=== PATIENT | female | born 1930 | race Caucasian/White ===

== ENCOUNTER 2017-12-11 13:30 | Observation (INO) | payer OTHER ==
[2017-12-11] MEDS ORDERED: NS 500 ML IV ONE (14:04)
--- NOTE | 2017-12-11 14:04 | CPEKG ---
Heart Rate: 141 RR Interval: 426 QRSD Interval: 74 QT Interval: 268 QTC Interval: 411 QRS [place]: -16 T Wave [place]: 226 EKG Severity - ABNORMAL ECG - EKG Impression: ATRIAL FIBRILLATION EKG Impression: PROBABLE LVH WITH SECONDARY REPOL ABNRM Electronically Signed By: Alfonzo Shoemaker 11-Dec-2017 20:47:20
[2017-12-11 14:29] LABS: PLATELET COUNT 179 10^3/uL (150-400)
[2017-12-11 14:37] LABS: INR 1.15 (0.83-1.16); PROTIME(PATIENT) 14.9 SEC (12.0-15.0)
[2017-12-11] MEDS ORDERED: DILTIAZEM 125 MG in D5W 125 ML IV ONE (14:38)
[2017-12-11 14:41] LABS: CREATINE KINASE 31 IU/L (0-156)
--- NOTE | 2017-12-11 14:46 | EDPHY ---
H & P Time Seen by Provider: 12/11/17 14:03 HPI/ROS: HPI From surgery Center. Atrial fibrillation. 87-year-old female from the surgery center where she was getting cataract surgery on her left eye by Dr. Cortez gonzalez of the ophthalmology service. She has a history of atrial fibrillation and is on Eliquis. Her atrial fibrillation has been well rate controlled according to her daughter who accompanies her. She came out of anesthesia with a heart rate in the 140s. No associated chest pain or shortness of breath. She was sent to the emergency department for evaluation. She currently denies any pain to her left eye. ROS: Constitutional: No fever, no chills. No weakness. Eyes: No discharge. As above. ENT: No sore throat. No nasal congestion or rhinorrhea. Respiratory: No cough. No shortness of breath. Cardiac: No chest pain, as above. Gastrointestinal: No abdominal pain, no vomiting, no diarrhea. Genitourinary: No hematuria. No dysuria or increased frequency with urination. Musculoskeletal: No back pain. No neck pain. No myalgias or arthralgias. Skin: No rashes. Neurological: No headache. No focal weakness or altered sensation. Past medical history: History of cataracts. Pulmonary disease, atrial fibrillation on Eliquis. Social history: Here with daughter and family. Nonsmoker. Physical Exam: General Appearance: Alert, no distress. This patient is responding to questions appropriately and in full sentences. This patient appears well- hydrated and well-nourished. Eyes: Right eye pupil round and reactive to light. No lid injection or edema. Left eye covered in a protective patch. Respiratory: There are no retractions, lungs are clear to auscultation with good air movement bilaterally. Cardiovascular: Irregular, irregular tachycardia. No murmur appreciated. Gastrointestinal: Abdomen is soft and nontender, no masses, bowel sounds normal. No focal tenderness at McBurney's point. No Sandoval sign. Neurological: Motor sensory function is grossly intact. Cranial nerves are normal. Skin: Warm and dry, no rashes. Musculoskeletal: Neck is supple and nontender. Extremities are symmetrical. All joints range without pain or impingement. Psychiatric: No agitation. No depression. Database: EKG: EKG time is 2:02 p.m.; EKG shows a narrow complex atrial fibrillation with ventricular rate average of 141. No ST, T-wave changes indicative of ischemic or injury pattern. Interpreted by me. Repeat EKG time 3:47 p.m.; shows sinus versus ectopic atrial rhythm which is regular, rate of 66. Poor R-wave progression in the anterior precordial leads. Interpreted by me. Imaging: Chest x-ray AP portable; the cardiac mediastinal silhouette is unremarkable. Bilateral interstitial pneumonitis. Chronicity indeterminate. No evidence of pneumothorax. No other acute cardiopulmonary disease process noted. Interpreted by me. Procedures: Emergency department course: IV placed. She was placed on a groundwater monitoring technician. Vital signs reviewed. She was started on IV normal saline with 500 cc to be given over an hour. Secondary to her history of atrial fibrillation she will be rate controlled with plan for admission, echocardiography and consultation by the cardiology service for further management. She will be started on a diltiazem loading drip at 2.5 milligrams/minute initially for rate control. This plan was discussed with the family. All of their questions were answered. I spoke with her tool room gear machine operator, Dr. Rodriguez. He is aware she is here and what we are treating her for. He stated that he would stop by and see her this evening on the floor. 3:20 p.m., the patient is started her rate control. I discussed her case with on-call hospitalist Dr. Francois. Patient accepted for admission to the hospitalist service, telemetry. 3:45 p.m., patient has converted to a sinus rhythm. EKG to be repeated. She remains asymptomatic. 5:20 p.m., there was discussion on whether not to send the patient home in light of her conversion to a sinus rhythm. She and her daughter want her to remain in the hospital overnight. She was admitted to telemetry as previously planned in stable and improved condition. Differential Diagnosis: The differential diagnosis on this patient includes but is not limited to atrial fibrillation with rapid ventricular response. Acute coronary syndrome, hyperthyroid state, pulmonary embolism, toxic metabolic problem unlikely. This represents a partial list of diagnoses considered. These considerations are based on history, physical exam, past history, reassessment and diagnostic testing. Smoking Status: Never smoked Constitutional: Initial Vital Signs Temperature (C) 36.0 C 12/11/17 13:46 Blood Pressure 129/80 H 12/11/17 13:46 O2 Delivery Mode Room Air Allergies/Adverse Reactions: cat dander Allergy (Verified 12/11/17 13:52) codeine Allergy (Verified 12/11/17 13:52) Home Medications: Medication Instructions Recorded Apixaban [Eliquis] 2.5 mg PO BID 12/11/17 Hydrochlorothiazide [HCTZ (*)] 25 mg PO DAILY 12/11/17 Ketorolac 0.5% [Acular 0.5% Opht 1 drops LEFTEYE QID 12/11/17 Drops (*)] Levothyroxine [Synthroid 75 mcg 75 mcg PO DAILY06 12/11/17 (*)] Pantoprazole Sodium [Protonix] 20 mg PO HS 12/11/17 Polymyxin B Sulfate/Tmp [Polytrim 1 drops LEFTEYE QID 12/11/17 Opht Drops (*)] prednisoLONE ACET 1% [Pred Forte 1 drops LEFTEYE QID 12/11/17 1% (*)] Medical Decision Making - Diagnostics Imaging Results: Imaging Impressions Chest X-Ray 12/11/17 14:04 Impression: Bilateral interstitial pneumonitis (chronicity-indeterminate). Please see the above discussion. Comparison with prior studies would be helpful to assess for more specific interval change, and it may be worthwhile to consider follow up chest radiography in 4-6 weeks to reestablish a baseline. - Data Points Laboratory Results: Laboratory Results 12/11/17 14:16 12/11/17 14:16 12/11/17 12/11/17 12/11/17 14:16 14:16 14:16 WBC 6.40 10^3/uL 10^3/uL (3.80-9.50) RBC 5.20 10^6/uL 10^6/uL (4.18-5.33) Hgb 15.0 g/dL g/dL (12.6-16.3) Hct 44.7 % % (38.0-47.0) MCV 86.0 fL fL (81.5-99.8) MCH 28.8 pg pg (27.9-34.1) MCHC 33.6 g/dL g/dL (32.4-36.7) RDW 14.5 % % (11.5-15.2) Plt Count 179 10^3/uL 10^3/uL (150-400) MPV 9.6 fL fL (8.7-11.7) Neut % (Auto) 69.0 % % (39.3-74.2) Lymph % (Auto) 19.5 % % (15.0-45.0) Morrow % (Auto) 9.1 % % (4.5-13.0) Eos % (Auto) 1.6 % % (0.6-7.6) Baso % (Auto) 0.5 % % (0.3-1.7) Nucleat RBC Rel Count 0.0 % % (0.0-0.2) Absolute Neuts (auto) 4.42 10^3/uL 10^3/uL (1.70-6.50) Absolute Lymphs (auto) 1.25 10^3/uL 10^3/uL (1.00-3.00) Absolute Monos (auto) 0.58 10^3/uL 10^3/uL (0.30-0.80) Absolute Eos (auto) 0.10 10^3/uL 10^3/uL (0.03-0.40) Absolute Basos (auto) 0.03 10^3/uL 10^3/uL (0.02-0.10) Absolute Nucleated RBC 0.00 10^3/uL 10^3/uL (0-0.01) Immature Gran % 0.3 % % (0.0-1.1) Immature Gran # 0.02 10^3/uL 10^3/uL (0.00-0.10) PT 14.9 SEC SEC (12.0-15.0) INR 1.15 (0.83-1.16) APTT 34.9 SEC SEC (23.0-38.0) Sodium 137 mEq/L mEq/L (135-145) Potassium 4.3 mEq/L mEq/L (3.5-5.2) Chloride 101 mEq/L mEq/L (97-110) Carbon Dioxide 30 mEq/l mEq/l (22-31) Anion Gap 6 mEq/L L mEq/L (8-16) BUN 17 mg/dL mg/dL (7-23) Creatinine 0.6 mg/dL mg/dL (0.6-1.0) Estimated GFR > 60 Glucose 93 mg/dL mg/dL (70-100) Calcium 9.6 mg/dL mg/dL (8.5-10.4) Creatine Kinase 31 IU/L IU/L (0-156) CK-MB (CK-2) Fraction 0.99 ng/mL ng/mL (0.00-3.19) Troponin I < 0.012 ng/mL ng/mL (0.000-0.034) NT-Pro-B Natriuret Pep 668 pg/mL H pg/mL (0-450) Medications Given: Discontinued Medications Sodium Chloride (Ns) 500 mls @ 1,000 mls/hr IV EDNOW ONE PRN Reason: Protocol Stop: 12/11/17 14:33 Last Admin: 12/11/17 14:13 Dose: 500 mls Diltiazem HCl 125 mg/ Dextrose 125 mls @ 0 mls/hr IV EDNOW ONE; As Directed PRN Reason: Protocol Stop: 12/11/17 14:39 Last Admin: 12/11/17 15:09 Dose: 125 mls Departure - Departure Disposition: [facility] Acute Clinical Impression: Atrial fibrillation with RVR
[2017-12-11] MEDS ORDERED: ONDANSETRON 4 MG/2 ML VIAL IVP PRN (15:07)
[2017-12-11] MEDS ORDERED: ACETAMINOPHEN 325 MG TAB PO PRN (15:07)
[2017-12-11] MEDS ORDERED: ONDANSETRON DISINTEGRATING 4 MG TAB PO PRN (15:07)
--- NOTE | 2017-12-11 15:49 | CPEKG ---
Heart Rate: 66 RR Interval: 909 P-R Interval: 128 QRSD Interval: 82 QT Interval: 408 QTC Interval: 428 P [place]: -73 QRS [place]: -32 T Wave [place]: 58 EKG Severity - ABNORMAL ECG - EKG Impression: SINUS OR ECTOPIC ATRIAL RHYTHM EKG Impression: MULTIFORM VENTRICULAR PREMATURE COMPLEXES EKG Impression: MULT INTERPOLATED VENT PREMATURE COMPLEXES EKG Impression: LEFT AXIS DEVIATION EKG Impression: BORDERLINE R WAVE PROGRESSION, ANTERIOR LEADS Electronically Signed By: Alfonzo Shoemaker 11-Dec-2017 20:47:20
--- NOTE | 2017-12-11 16:03 | GHP ---
[f rep st] HISTORY AND PHYSICAL DATE OF ADMISSION: 12/11/2017 HISTORY OF PRESENT ILLNESS: A pleasant 87-year-old female with history of atrial fibrillation, on Eliquis, who is brought to the ER from [facility] with rapid atrial fibrillation. She underwent left cataract surgery today and heart rates were found to be in the 150s. She felt very fatigued. Denies any chest pain or shortness of breath. No nausea, vomiting, or diarrhea. She will occasionally feel palpitations, but this resolves quickly at home. No fevers, chills, or sweats. Lives in independent living in [place]. Uses a walker. She is not on CCB or BB for rate-control. REVIEW OF SYSTEMS: I completed a 10-point review of systems, negative except as noted in HPI. PAST MEDICAL HISTORY: 1. Atrial fibrillation. 2. Negative Lexiscan 11/17/2016. 3. Echocardiogram 10/2016: No wall motion abnormalities. EF of 60%, mild AR/ MR/TR/ME. 4. Hypothyroidism. PAST SURGICAL HISTORY: 1. Cataract. 2. Two shoulders. 3. IRENA. 4. Hysterectomy. 5. Teeth implant. 6. Gallbladder. 7. Breast reduction. 8. Breast implant. 9. Back surgery. FAMILY HISTORY: Noncontributory. ALLERGIES: Cat dander, codeine. HOME MEDICATION: PPI, levothyroxine, hydrochlorothiazide, Eliquis. PHYSICAL EXAM: VITAL SIGNS: Temperature 36.0, blood pressure 129/80, heart rate initially 140s, now 85-106, respirations 18, 97% on room air. GENERAL: Elderly female, thin, no acute distress. HEENT: A patch over left eye. Oropharynx clear. CV: Irregularly irregular, tachy. No lower extremity edema. LUNGS: Clear. ABDOMEN: Soft, nontender, nondistended. : No Cunningham. MUSCULOSKELETAL: Moving all 4 extremities. NEUROLOGIC: Cranial nerves 2 through 12 intact. PSYCH: Alert and oriented x3. Very pleasant. LABORATORY DATA: WBC 6, hemoglobin 15, hematocrit 44, platelets 179. Coags within normal. Sodium 137, potassium 4.3, chloride 101, carbon dioxide 30, creatinine 0.6, glucose 93, CK 31. BNP is 668. Troponin is less than 0.012. ASSESSMENT/PLAN: 1. Atrial fibrillation with RVR: triggered by surgery. Asymptomatic. Got low- dose diltiazem in the emergency room. Have to be careful with soft blood pressure. Negative Lexiscan and mild valvular heart disease on echo, October 2016. Per cardiology clinic notes, was dosed Metoprol 12.5 mg for a short enrique- operative course of 2 weeks. Can consider this if not rate-controlled. Holding Eliquis with surgery. 2. Hypertension. Hold hydrochlorothiazide. 3. Levothyroxine. Resume Synthroid. 4. Diet: Regular. 5. Deep vein thrombosis prophylaxis: Sequential compression devices. DISPOSITION: Patient warrants observation admission in the PCU for diltiazem drip and cardiac consultation, possible cardioversion. /[id number]/MODL MTDD
[2017-12-11] MEDS: KETOROLAC 0.5% 5 ML OPHT.BTL LEFTEYE SCH (20:57)
[2017-12-11] MEDS: POLYMYXIN B SULFATE/TMP 10 ML OPHT.BTL LEFTEYE SCH (20:58)
[2017-12-11] MEDS ORDERED: GATIFLOXACIN 0.5% 2.5 ML OPHT DROPS LEFTEYE SCH (21:00)
[2017-12-11] MEDS ORDERED: PANTOPRAZOLE SODIUM 40 MG TAB PO SCH (21:00)
[2017-12-11] MEDS: prednisoLONE ACET 1% 5 ML OPHT.BTL LEFTEYE SCH (21:01)
[2017-12-12] MEDS: KETOROLAC 0.5% 5 ML OPHT.BTL LEFTEYE SCH ×3 (05:50→17:55)
[2017-12-12] MEDS: prednisoLONE ACET 1% 5 ML OPHT.BTL LEFTEYE SCH ×3 (05:51→17:55)
[2017-12-12] MEDS: POLYMYXIN B SULFATE/TMP 10 ML OPHT.BTL LEFTEYE SCH ×3 (05:51→17:56)
[2017-12-12] MEDS ORDERED: LEVOTHYROXINE 75 MCG TAB PO SCH (06:00)
[2017-12-12 11:47] VITALS: BP 135/50
[2017-12-12] MEDS ORDERED: APIXABAN 2.5 MG TAB PO SCH (13:15)
--- NOTE | 2017-12-12 14:16 | PDIAF ---
- Diagnosis Diagnosis: A fib Code Status: Full Code - Medication Management Discharge Medications: Medications to Continue on Transfer Apixaban [Eliquis] 2.5 mg PO BID 12/11/17 [Last Taken 12/10/17 21:00] Ketorolac 0.5% [Acular 0.5% Opht Drops (*)] 1 drops LEFTEYE QID 12/11/17 [Last Taken 12/11/17 06:00] Levothyroxine [Synthroid 75 mcg (*)] 75 mcg PO DAILY06 12/11/17 [Last Taken 08/17] Pantoprazole Sodium [Protonix] 20 mg PO HS 12/11/17 [Last Taken 12/10/17] Polymyxin B Sulfate/Tmp [Polytrim Opht Drops (*)] 1 drops LEFTEYE QID 12/11/17 [ Last Taken 12/11/17 08:00] prednisoLONE ACET 1% [Pred Forte 1% (*)] 1 drops LEFTEYE QID 12/11/17 [Last Taken Unknown] Diltiazem HCl [Diltiazem 24Hr Cd] 120 mg PO DAILY #30 cap.er.24h 12/12/17 [Last Taken Unknown] Discharge Medications: Refer to the Discharge Home Medication list for PRN reason. - Orders Services needed: Home Care, Registered Nurse, Physical Therapy Home Care Face to Face: I certify that this patient was under my care and that I had the required [id number] encounter meeting the encounter requirements on the discharge day. My findings support the fact that the patient is homebound as defined in Home Care Face to Face Continued: CMS Chapter 7 Medicare Benefits Manual 30.1.1 , The condition of the patient is such that there exists a normal inability to leave home and consequently, leaving home would require a considerable and taxing effort. Diet Recommendation: no restrictions on diet Additional Instructions: Stop the HCTZ. Instead, start new prescription for Diltiazem 120 mg daily. This should hopefully prevent recurrent A fib. Continue Eliquis and all other medications. Follow up with your PCP in 2-3 days to recheck your blood pressure. - Follow Up Care Current Providers and Referrals: NONE *PRIMARY CARE P,. [Primary Care Provider] - As per Instructions
--- NOTE | 2017-12-12 15:47 | PDIAF ---
- Diagnosis Diagnosis: A fib Code Status: Full Code - Medication Management Discharge Medications: Medications to Continue on Transfer Apixaban [Eliquis] 2.5 mg PO BID 12/11/17 [Last Taken 12/10/17 21:00] Ketorolac 0.5% [Acular 0.5% Opht Drops (*)] 1 drops LEFTEYE QID 12/11/17 [Last Taken 12/11/17 06:00] Levothyroxine [Synthroid 75 mcg (*)] 75 mcg PO DAILY06 12/11/17 [Last Taken 08/17] Pantoprazole Sodium [Protonix] 20 mg PO HS 12/11/17 [Last Taken 12/10/17] Polymyxin B Sulfate/Tmp [Polytrim Opht Drops (*)] 1 drops LEFTEYE QID 12/11/17 [ Last Taken 12/11/17 08:00] prednisoLONE ACET 1% [Pred Forte 1% (*)] 1 drops LEFTEYE QID 12/11/17 [Last Taken Unknown] Diltiazem HCl [Diltiazem 24Hr Cd] 120 mg PO DAILY #30 cap.er.24h 12/12/17 [Last Taken Unknown] Discharge Medications: Refer to the Discharge Home Medication list for PRN reason. - Orders Services needed: Home Care, Registered Nurse, Physical Therapy Home Care Face to Face: I certify that this patient was under my care and that I had the required [id number] encounter meeting the encounter requirements on the discharge day. My findings support the fact that the patient is homebound as defined in Home Care Face to Face Continued: CMS Chapter 7 Medicare Benefits Manual 30.1.1 , The condition of the patient is such that there exists a normal inability to leave home and consequently, leaving home would require a considerable and taxing effort. Diet Recommendation: no restrictions on diet Equipment: Home care to start 12/15/2017 Additional Instructions: Stop the HCTZ. Instead, start new prescription for Diltiazem 120 mg daily. This should hopefully prevent recurrent A fib. Continue Eliquis and all other medications. Follow up with your PCP in 2-3 days to recheck your blood pressure. - Follow Up Care Current Providers and Referrals: NONE *PRIMARY CARE P,. [Unknown] - As per Instructions
--- NOTE | 2017-12-12 17:01 | GDS ---
[f rep st] DISCHARGE SUMMARY DISCHARGE DIAGNOSES: 1. Atrial fibrillation with rapid ventricular rate; converted to sinus rhythm. 2. Status post cataract surgery. 3. Chronic anticoagulation. 4. Hypertension. 5. Hypothyroidism. HISTORY: For details please see the history and physical dated December 11, 2017. In brief, the benjamin song is an 87-year-old female with history of hypertension and hypothyroidism, who underwent cataract irene rgery on the day of admission. Postoperatively, she was found to be in rapid AFib with heart rate in [id number]. She presented to the emergency department for further management. HOSPITAL COURSE: The patient was admitted to the progressive care unit. She was started on low-dose diltiazem drip and immediately converted to normal sinus rhythm. She was observed in the hospital o vernight and maintained sinus rhythm. I discussed resuming Eliquis with her ophthalmology team, who felt it was safe to resume at any time. She will continue this at discharge. In an effort to preven t recurrent rapid AFib, she is started on diltiazem CD 120 mg daily. For this reason, I discontinued her HCTZ to avoid hypotension. She should have close followup with her primary care physician. She was evaluated by the therapy services team who felt she was appropriate for home health care/PT. I have also requested home health RN to check up on her blood pressure and heart rate with the addition of diltiazem to her regimen. DISPOSITION: Patient is discharged home in stable condition. FOLLOWUP: 1. Primary care. 2. in ophthalmology. DISCHARGE MEDICATIONS: Please see O-CODES for completed outpatient medication list. New medications on discharge include diltiazem 120 mg p.o. daily (#30/no refills). Continue all othe r outpatient medications as previously prescribed including levothyroxine 75 mcg p.o. daily, apixaban 2.5 mg p.o. twice daily, Protonix 40 mg p.o. q.h.s. and all of her eyedrops. Discontinued medications: Hydrochlorothiazide. /[id number]/MODL
== END 2017-12-12 17:30 | disposition home health service (06) ==
LOC: EDUNIT# → F2W 18:30
PROVIDERS: ADMIT Internal Medicine; ATTEND Hospitalist
DX: I48.91 Unspecified atrial fibrillation (principal); E86.9 Volume depletion, unspecified; J84.9 Interstitial pulmonary disease, unspecified; I10 Essential (primary) hypertension; E03.9 Hypothyroidism, unspecified; Z98.890 Other specified postprocedural states; Z79.01 Long term (current) use of anticoagulants; Z96.649 Presence of unspecified artificial hip joint
CPT/HCPCS: 71045; 93005; 97161; 97165; G0378; G8987; G8988; G8989

== ENCOUNTER → 2018-11-25 | Outpatient (CLI) | payer OTHER | LOC: BHFA 13:15 | PROVIDERS: ATTEND Internal Medicine Cardiovascular Disease | DX: I48.91 Unspecified atrial fibrillation (principal) ==